=== PATIENT | male | born 1995 | race African-American/Black ===

== ENCOUNTER 2024-04-04 10:51 | Emergency (ER) | payer OTHER ==
[~2024-04-04] VITALS: Ht 177.8 cm; Wt 70.0 kg
[2024-04-04] VITALS (16 sets, daily range): BP systolic 91–118; BP diastolic 54–82
[~2024-04-04 10:51] MED LIST: ONDANSETRON4 MG PO
[2024-04-04] MEDS ORDERED: KETOROLAC TROMETHAMINE 30 MG/ML SDV IV ONE (12:40)
[2024-04-04] MEDS ORDERED: SODIUM CHLORIDE 0.9% 1,000 ML IV ONE (12:40)
[2024-04-04] MEDS ORDERED: DICYCLOMINE HCL 10 MG/CAP PO ONE (12:40)
[2024-04-04 13:05] LABS: BASO% 0.7 % (0-3); EOS% 0.7 % (0-8); HEMATOCRIT 39.6 % (39.0-50.0); HEMOGLOBIN 12.8 g/dl (14.0-18.0); LYMPH% 48.9 % (15-41); MEAN CELL VOLUME 81.5 fL CALC (80.0-100.0); MEAN CORPUSCULAR HGB 26.3 pG CALC (26.0-32.0); MEAN CORPUSCULAR HGB CONC 32.3 g/dL CAL (32.0-36.0); MONO% 10.7 % (2-13); NEUT# 1.2 thou/uL (1.82-7.42); RED BLOOD COUNT 4.86 mill/uL (4.70-6.10); RED CELL DISTRI WIDTH 14.4 % (11.5-15.5)
[2024-04-04 13:19] LABS: TOTAL PROTEIN 7.7 g/dL (6.3-8.2)
[2024-04-04 13:22] LABS: ALBUMIN 4.5 g/dL (3.2-5.0); BILIRUBIN, TOTAL 0.7 mg/dL (0.2-1.3); POTASSIUM 4.3 mmol/l (3.5-5.1)
[2024-04-04] MEDS ORDERED: ZITHROMAX500 MG PO (15:41)
== END 2024-04-04 16:00 | disposition home or self-care (01) | DRG 866 ==
LOC: ED 10:51
PROVIDERS: Nurse Practitioner
DX: B34.9 Viral infection, unspecified (principal); R19.7 Diarrhea, unspecified; Z20.822 Contact with and (suspected) exposure to COVID-19
CPT/HCPCS: Q9967

== ENCOUNTER 2024-07-22 06:55 | Emergency (ER) | payer SELFPAY ==
[2024-07-22] VITALS (15 sets, daily range): BP systolic 104–124; BP diastolic 72–86
[~2024-07-22] VITALS: Ht 177.8 cm; Wt 75.0 kg
[~2024-07-22 06:55] MED LIST changes: +ZITHROMAX500 MG PO
[2024-07-22] MEDS ORDERED: FAMOTIDINE 10MG/ML 2ML SDV IV ONE (07:30)
[2024-07-22] MEDS ORDERED: ONDANSETRON HCl 4 MG/2 ML SDV IV ONE (07:30)
[2024-07-22] MEDS ORDERED: SODIUM CHLORIDE 0.9% 1,000 ML IV ONE (07:30)
[2024-07-22] MEDS ORDERED: KETOROLAC TROMETHAMINE 30 MG/ML SDV IV ONE (07:30)
[2024-07-22 08:30] LABS: EOS% 0.3 % (0-8); HEMOGLOBIN 13.4 g/dl (14.0-18.0); LYMPH% 43.2 % (15-41); MEAN CELL VOLUME 84.2 fL CALC (80.0-100.0); MEAN CORPUSCULAR HGB 26.9 pG CALC (26.0-32.0); MEAN CORPUSCULAR HGB CONC 31.9 g/dL CAL (32.0-36.0); MONO% 7.7 % (2-13); NEUT# 1.37 thou/uL (1.82-7.42); NEUT% 47.8 % (42-76); RED BLOOD COUNT 4.99 mill/uL (4.70-6.10); RED CELL DISTRI WIDTH 14.7 % (11.5-15.5)
[2024-07-22 08:45] LABS: ALBUMIN 4.2 g/dL (3.2-5.0); BILIRUBIN, TOTAL 0.6 mg/dL (0.2-1.3); POTASSIUM 4.1 mmol/l (3.5-5.1); TOTAL PROTEIN 7.4 g/dL (6.3-8.2)
[2024-07-22] MEDS ORDERED: DICYCLOMINE HCL20 MG PO (11:15)
[2024-07-22] MEDS ORDERED: PEPCID AC20 M1 PO (11:15)
[2024-07-22] MEDS ORDERED: ZOFRAN4 MG/TAB PO (11:15)
== END 2024-07-22 11:35 | disposition home or self-care (01) | DRG 392 ==
LOC: ED 06:55
PROVIDERS: Emergency Medicine
DX: K52.9 Noninfective gastroenteritis and colitis, unspecified (principal)
CPT/HCPCS: J2405; Q9967